=== PATIENT | female | born 1990 | race Caucasian/White ===

== ENCOUNTER 2018-01-13 07:21 | Inpatient (IN) | payer MEDICAID ==
[2018-01-13] MEDS ORDERED: IBUPROFEN 600 MG TAB PO (10:00)
[2018-01-13] MEDS ORDERED: LIDOCAINE 1% (MPF) 30 ML INJ INJ (10:00)
[2018-01-13] MEDS ORDERED: CARBOPROST 250 MCG INJ IM (10:00)
[2018-01-13] MEDS ORDERED: OXYTOCIN 30 UNITS/LR 500 ML IV ×2 (10:00)
[2018-01-13] MEDS ORDERED: METHYLERGONOVINE 0.2 MG INJ IM (10:00)
[2018-01-13] MEDS ORDERED: MISOPROSTOL 200 MCG TAB PR (10:00)
[2018-01-13 10:18] LABS: ADD MAN DIFF? NO
[2018-01-13] MEDS: LACTATED RINGER'S 1,000 ML IV ×4 (10:19→22:10)
[2018-01-13 10:20] LABS: WHITE BLOOD COUNT 8.2 10^3/ul (4.8-10.8)
[2018-01-13 10:20] LABS: BASOPHILS % 0.4 % (0.0-2.0); EOSINOPHILS # 0.1 10^3/ul (0.0-0.5); EOSINOPHILS % 0.7 % (0.0-7.0); HEMATOCRIT 39.2 % (37.0-47.0); HEMOGLOBIN 12.9 g/dl (12.0-16.0); LYMPHOCYTES # 2.4 10^3/ul (0.8-2.9); LYMPHOCYTES % 29.1 % (15.0-51.0); MEAN CORPUSCULAR HEMOGLOBIN 29.6 pg (29.0-33.0); MEAN CORPUSCULAR HGB CONC 32.9 g/dl (32.0-37.0); MEAN CORPUSCULAR VOLUME 89.9 fl (82.0-101.0); MEAN PLATELET VOLUME 10.1 fl (7.4-10.4); MONOCYTE # 0.5 10^3/ul (0.3-0.9); MONOCYTES % 6.5 % (0.0-11.0); NEUTROPHIL # 5.1 10^3/ul (1.6-7.5); NEUTROPHILS % 62.8 % (39.0-77.0); PLATELET COUNT 178 10^3/UL (140-415); RED BLOOD COUNT 4.36 10^6/ul (4.20-5.40); RED CELL DISTRIBUTION WIDTH 13.1 % (11.5-14.5)
[2018-01-13] MEDS: OXYTOCIN 30 UNITS/LR 500 ML IV (10:30)
[2018-01-13 10:42] LABS: INR 0.86; PARTIAL THROMBOPLASTIN TIME 26.4 Sec (23.0-35.0); PROTIME 11.8 Sec (11.9-14.9); PT RATIO 0.9
[2018-01-13] MEDS: BUTORPHANOL 2 MG INJ IV (15:32)
[2018-01-13 16:36] LABS: RAPID PLASMA REAGIN NONREACTIVE (NR)
[2018-01-13] MEDS ORDERED: KETOROLAC 30 MG INJ IV (20:00)
[2018-01-13] MEDS ORDERED: DIPHENHYDRAMINE 50 MG INJ IV (20:00)
[2018-01-13] MEDS ORDERED: NALOXONE (0.4 MG/ML) INJ IV (20:00)
[2018-01-13] MEDS ORDERED: ONDANSETRON 4 MG INJ IV (20:00)
[2018-01-13] MEDS ORDERED: HYDROmorphONE 0.5 MG/0.5 ML SYG IV ×2 (20:00)
[2018-01-13] MEDS ORDERED: LIDOCAINE 1% (MPF) 30 ML INJ (20:35)
[2018-01-13] MEDS: FENTAnyl 2MCG/ML-ROPIV 0.2% 100 ML BAG EPI (22:09)
[2018-01-14] MEDS: OXYTOCIN 30 UNITS/LR 500 ML IV ×2 (04:43→08:41)
[2018-01-14] MEDS ORDERED: DIPHENHYDRAMINE 25 MG CAP PO (05:00)
[2018-01-14] MEDS ORDERED: CARBOPROST 250 MCG INJ IM (05:00)
[2018-01-14] MEDS ORDERED: OXYTOCIN 30 UNITS/LR 500 ML IV (05:00)
[2018-01-14] MEDS ORDERED: NACL 0.9% 3 ML SYG IV (05:00)
[2018-01-14] MEDS ORDERED: ONDANSETRON 4 MG INJ IV (05:00)
[2018-01-14] MEDS ORDERED: MISOPROSTOL 200 MCG TAB PR (05:00)
[2018-01-14] MEDS ORDERED: METHYLERGONOVINE 0.2 MG INJ IM (05:00)
[2018-01-14] MEDS ORDERED: ACETAMINOPHEN 325 MG TAB PO (05:00)
[2018-01-14] MEDS ORDERED: HYDROCODONE/APAP (5/325) TAB PO (05:00)
[2018-01-14] MEDS ORDERED: ZOLPIDEM 5 MG TAB PO (05:00)
[2018-01-14 07:54] LABS: HEMATOCRIT 37.9 % (37.0-47.0); HEMOGLOBIN 12.5 g/dl (12.0-16.0)
[2018-01-14] MEDS: IBUPROFEN 600 MG TAB PO ×4 (08:40→23:34)
[2018-01-14] MEDS: SENNA/DOCUSATE NA (8.6MG/50MG) TAB PO ×2 (08:41→20:56)
[2018-01-14] MEDS: WITCH HAZEL/GLYCERIN PAD PR (20:57)
[2018-01-14] MEDS: LANOLIN 7 GM TUBE TOP (20:57)
[2018-01-15] MEDS: IBUPROFEN 600 MG TAB PO ×4 (05:42→23:55)
[2018-01-15 08:42] LABS: ADD MAN DIFF? NO
[2018-01-15 08:48] LABS: BASOPHILS % 0.3 % (0.0-2.0); EOSINOPHILS # 0.1 10^3/ul (0.0-0.5); EOSINOPHILS % 0.9 % (0.0-7.0); HEMATOCRIT 34.2 % (37.0-47.0); HEMOGLOBIN 11.3 g/dl (12.0-16.0); LYMPHOCYTES # 2.5 10^3/ul (0.8-2.9); LYMPHOCYTES % 23.6 % (15.0-51.0); MEAN CORPUSCULAR HEMOGLOBIN 30.1 pg (29.0-33.0); MEAN CORPUSCULAR VOLUME 91.2 fl (82.0-101.0); MEAN PLATELET VOLUME 10.3 fl (7.4-10.4); MONOCYTE # 0.8 10^3/ul (0.3-0.9); MONOCYTES % 7.4 % (0.0-11.0); NEUTROPHIL # 7.1 10^3/ul (1.6-7.5); NEUTROPHILS % 67.4 % (39.0-77.0); PLATELET COUNT 143 10^3/UL (140-415); RED BLOOD COUNT 3.75 10^6/ul (4.20-5.40); RED CELL DISTRIBUTION WIDTH 13.7 % (11.5-14.5)
[2018-01-15 08:48] LABS: WHITE BLOOD COUNT 10.5 10^3/ul (4.8-10.8)
[2018-01-15] MEDS: SENNA/DOCUSATE NA (8.6MG/50MG) TAB PO ×2 (09:28→21:13)
[2018-01-15] MEDS: MINERAL OIL LIGHT 10 ML VIAL TOP (09:28)
[2018-01-16] MEDS: IBUPROFEN 600 MG TAB PO ×2 (06:09→12:49)
[2018-01-16] MEDS: DIPHTH/TET/ACEL PERTUSS (ADULT) 0.5 ML VIAL IM* (09:00)
[2018-01-16] MEDS: VARICELLA VACCINE LIVE/PF 1,350 UNIT/0.5 ML ML SC* (09:00)
[2018-01-16] MEDS: MEASLES,MUMPS,RUBELLA VACCINE INJ SC* (09:00)
[2018-01-16] MEDS: SENNA/DOCUSATE NA (8.6MG/50MG) TAB PO (09:11)
== END 2018-01-16 15:30 | disposition home or self-care (01) | DRG 807 ==
LOC: OBT 07:21 → PP1 01-14 06:22 → L-D 07:21 → OBT 09:14 → L-D 09:00
PROVIDERS: Obstetrics & Gynecology
PROC: 10E0XZZ Delivery of Products of Conception, External Approach (ICD-10-PCS; principal; 2018-01-13)
PROC: 0KQM0ZZ Repair Perineum Muscle, Open Approach (ICD-10-PCS; 2018-01-13)
PROC: 3E033VJ Introduction of Other Hormone into Peripheral Vein, Percutaneous Approach (ICD-10-PCS; 2018-01-13)
DX: O70.1 Second degree perineal laceration during delivery (principal); Z37.0 Single live birth; Z3A.39 39 weeks gestation of pregnancy
CPT/HCPCS: 62319; 85014; 85018; 85025; 85610; 85730; 86592; 86900; 86901; 90686; 90716